=== PATIENT | male | born 1990 | race Caucasian/White ===

== ENCOUNTER 2018-05-27 20:45 | Inpatient (IN) | payer SELFPAY, OTHER ==
[2018-05-27 20:59] VITALS: BP 144/78; PULSE 78; RESP 17; TEMP 36.9; O2SAT 93; BMI 55.0
--- NOTE | 2018-05-27 21:03 | NURSING ---
Pt arrived on floor and reclining in bed. Family at bedside. VS WNL. Call light within reach.
[2018-05-27 22:00] VITALS: BP 140/78; PULSE 105; PULSE 76; RESP 17; TEMP 36.8; O2SAT 93; BMI 54.9
[2018-05-28] MEDS: LORazepam 0.5 MG Tablet PO (00:21)
[2018-05-28] MEDS: oxyCODONE 5 MG Tablet PO ×5 (00:22→21:47)
[2018-05-28] MEDS: Acetaminophen 500 MG Tablet 1000 MG PO ×2 (04:15→20:19)
[2018-05-28 05:15] LABS: Hematocrit 32.9 % (40-54); Hemoglobin 11.3 g/dl (13.0-16.5); Mean Corp Hgb Conc 34.3 g/gl (32-36); Mean Corpuscular Volume 87.3 fL (80-94); Mean Platelet Vol. 8.4 fl (6.2-12.0); Platelet Count 584 K/mm3 (150-450); RBC Distribution Width CV 12.5 % (11.6-14.6); RBC Distribution Width SD 39.1 fl (35.1-43.9); Red Blood Count 3.77 M/mm3 (4.6-6.2); Scan Indicated on CBC? Y/N NO; White Blood Count 12.1 K/mm3 (4.4-11.0)
[2018-05-28 05:27] LABS: Anion Gap 12 (5-15); BUN 19 mg/dL (7-18); BUN/Creat Ratio 29.2 RATIO (10-20); Calcium,Total 8.9 mg/dL (8.5-10.1); Chloride 102 mmol/L (98-107); Creatinine, Serum 0.65 mg/dL (0.70-1.30); EST Glomerular Filtration Rate 154 mL/min (>60); Est Glom Filt Rate - Afr Amer 186 mL/min (>60); Estimated Creatinine Clearance 162.23 ml/min; Glucose 105 mg/dL (74-106); Sodium Level 140 mmol/L (136-145)
[2018-05-28] MEDS: Acyclovir 800 MG Tablet PO ×5 (06:46→20:20)
[2018-05-28 07:10] VITALS: O2SAT 93
[2018-05-28] MEDS: Senna/Docusate Sodium 1 Tablet 2 TABLET PO ×2 (08:25→20:20)
[2018-05-28] MEDS: predniSONE 20 MG Tablet PO (08:25)
[2018-05-28] MEDS: Enoxaparin 40 MG/0.4 ML Syringe SC (08:26)
[2018-05-28 09:00] VITALS: BP 134/76; PULSE 85; RESP 18; TEMP 37; O2SAT 93
--- NOTE | 2018-05-28 13:18 | PCM.PN.HOSP ---
Subjective: Patient is a 27 year old admission who fell from a ladder at work he subsequently had multiple injuries including compression fracture involving L1 and fractures involving the right L1 and L2 transverse process, T11 compression fracture and avulsion fracture involving the endplates of T12. He also did develop left subdural hematoma with multiple rhonchi and mild contusion and hematomas involving the left frontal lobe and subarachnoid hemorrhage over the left frontal lobe and into the left interhemispheric fissure. Also did suffer a skull fracture involving the right skull base extending through the right petrous ridge in the right occipital bone with fluid in the right mastoid air cells and fracture extension through the course of the right internal carotid artery. Patient was managed at [facility] and transferred to the inpatient rehab unit for subsequent care. Objective: GENERAL: cooperative HEENT: neck in a brace NECK; supple, normal thyroid, no distended JVD. CHEST: Diminished to auscultation bilaterally, HEART: Regular S1 S2, no audible murmurs ABDOMEN: soft, non-tender, normoactive bowel sounds, RECTAL: deferred EXTREMITIES: No edema, no clubbing, no cyanosis. [employer]: Right cranial nerve VII palsy SKIN: No Rash Vitals/I&O's: Vital Signs Temp Pulse Resp BP Pulse Ox 98.6 F 85 18 134/76 H 93 05/28/18 09:00 05/28/18 09:00 05/28/18 09:00 05/28/18 09:00 05/28/18 09:00 Oxygen Delivery Method Room Air Weight: 71.6 kg Body Mass Index (BMI) 54.9 Intake and Output for Last 24 Hours 05/26/18 05/27/18 05/28/18 23:59 23:59 23:59 Intake Total 620 / 620 Balance 620 / 620 Laboratory Results 05/28/18 05:00: WBC 12.1 H, RBC 3.77 L, Hgb 11.3 L, Hct 32.9 L, MCV 87.3, MCH 30.0, MCHC 34.3, RDW 12.5, RDW Differential 39.1, Plt Count 584 H, MPV 8.4 05/28/18 05:00: Sodium 140, Potassium 4.0, Chloride 102, Carbon Dioxide 26.0, Anion Gap 12, BUN 19 H, Creatinine 0.65 L, Estim Creat Clear Calc 162.23, Est GFR (MDRD) Af Amer 186, Est GFR (MDRD) Non-Af 154, BUN/Creatinine Ratio 29.2 H, Glucose 105, Calcium 8.9 Current Medications Acetaminophen (Tylenol) 1,000 mg PO Q8H PRN PRN PRN Reason: PAIN Last Admin: 05/28/18 04:15 Dose: 1,000 mg Acyclovir (Zovirax) 800 mg PO 5X/DAY [facility] Stop: 06/02/18 22:01 Last Admin: 05/28/18 08:25 Dose: 800 mg Artificial Tears (Tears Naturale, Artificial Tears) 1 drop RIGHT EYE Q1H PRN PRN PRN Reason: Dry Eye Last Admin: 05/28/18 06:43 Dose: 1 drop Bisacodyl (Dulcolax) 10 mg RECTAL .PRN X 1 PRN PRN Reason: Constipation Enoxaparin Sodium (Lovenox) 40 mg SC DAILY [facility] Last Admin: 05/28/18 08:26 Dose: 40 mg Fentanyl (Duragesic Patch) 12 mcg TRANSDERM. Q3D [facility] Last Admin: 05/28/18 10:14 Dose: 12 mcg Lorazepam (Ativan) 0.5 mg PO QHS PRN PRN PRN Reason: Insomnia Last Admin: 05/28/18 00:21 Dose: 0.5 mg Magnesium Hydroxide (Milk Of Magnesia) 30 ml PO .PRN X 1 PRN PRN Reason: Constipation Ondansetron HCl (Zofran Odt) 4 mg PO Q6H PRN PRN PRN Reason: NAUSEA Oxycodone HCl (Oxyir) 5 mg PO Q4H PRN PRN PRN Reason: SEVERE PAIN (6-10/10) Stop: 06/03/18 22:00 Last Admin: 05/28/18 10:47 Dose: 5 mg Phenazopyridine HCl (Azo Standard) 190 mg PO TID PRN PRN PRN Reason: urinary infection Prednisone () 5 mg PO DAILY@0800 [facility] Stop: 06/14/18 08:01 Prednisone () 60 mg PO DAILYCM [facility] PRN Reason: Taper Stop: 06/12/18 07:59 Last Admin: 05/28/18 08:25 Dose: 60 mg Senna/Docusate Sodium (Senokot-S, Yoana-Colace) 2 tablet PO BID [facility] Last Admin: 05/28/18 08:25 Dose: 2 tablet Medical Necessity - Tobacco Use Smoking Status: Never smoker Assessment/Plan Patient is a 27 year old admission who fell from a ladder at work he subsequently had multiple injuries including compression fracture involving L1 and fractures involving the right L1 and L2 transverse process, T11 compression fracture and avulsion fracture involving the endplates of T12. He also did develop left subdural hematoma with multiple rhonchi and mild contusion and hematomas involving the left frontal lobe and subarachnoid hemorrhage over the left frontal lobe and into the left interhemispheric fissure. Also did suffer a skull fracture involving the right skull base extending through the right petrous ridge in the right occipital bone with fluid in the right mastoid air cells and fracture extension through the course of the right internal carotid artery. Patient was managed at [facility] and transferred to the inpatient rehab unit for subsequent care. 1. Trauma with multiple injuries including compression fracture involving L1 and fractures involving the right L1 and L2 transverse process, T11 compression fracture and avulsion fracture involving the endplates of T12. He also did develop left subdural hematoma with multiple rhonchi and mild contusion and hematomas involving the left frontal lobe and subarachnoid hemorrhage over the left frontal lobe and into the left interhemispheric fissure. Also did suffer a skull fracture involving the right skull base extending through the right petrous ridge in the right occipital bone with fluid in the right mastoid air cells and fracture extension through the course of the right internal carotid artery 2. Significant physical debility secondary to above: Patient has been admitted to the inpatient rehab unit currently undergoing rehab 3. Ohara's palsy involving the right side: Patient is on prednisone as well as acyclovir 4. Bladder spasms patient is on Pyridium as needed 5. DVT prophylaxis patient is on enoxaparin Active Medications Acetaminophen (Tylenol) 1,000 mg PO Q8H PRN PRN PRN Reason: PAIN Last Admin: 05/28/18 04:15 Dose: 1,000 mg Acyclovir (Zovirax) 800 mg PO 5X/DAY [facility] Stop: 06/02/18 22:01 Last Admin: 05/28/18 08:25 Dose: 800 mg Artificial Tears (Tears Naturale, Artificial Tears) 1 drop RIGHT EYE Q1H PRN PRN PRN Reason: Dry Eye Last Admin: 05/28/18 06:43 Dose: 1 drop Bisacodyl (Dulcolax) 10 mg RECTAL .PRN X 1 PRN PRN Reason: Constipation Enoxaparin Sodium (Lovenox) 40 mg SC DAILY [facility] Last Admin: 05/28/18 08:26 Dose: 40 mg Fentanyl (Duragesic Patch) 12 mcg TRANSDERM. Q3D [facility] Last Admin: 05/28/18 10:14 Dose: 12 mcg Lorazepam (Ativan) 0.5 mg PO QHS PRN PRN PRN Reason: Insomnia Last Admin: 05/28/18 00:21 Dose: 0.5 mg Magnesium Hydroxide (Milk Of Magnesia) 30 ml PO .PRN X 1 PRN PRN Reason: Constipation Ondansetron HCl (Zofran Odt) 4 mg PO Q6H PRN PRN PRN Reason: NAUSEA Oxycodone HCl (Oxyir) 5 mg PO Q4H PRN PRN PRN Reason: SEVERE PAIN (6-10/10) Stop: 06/03/18 22:00 Last Admin: 05/28/18 10:47 Dose: 5 mg Phenazopyridine HCl (Azo Standard) 190 mg PO TID PRN PRN PRN Reason: urinary infection Prednisone () 5 mg PO DAILY@0800 [facility] Stop: 06/14/18 08:01 Prednisone () 60 mg PO DAILYCM [facility] PRN Reason: Taper Stop: 06/12/18 07:59 Last Admin: 05/28/18 08:25 Dose: 60 mg Senna/Docusate Sodium (Senokot-S, Yoana-Colace) 2 tablet PO BID [facility] Last Admin: 05/28/18 08:25 Dose: 2 tablet Code Visit Inpatient E&M: [id number] [facility] L3
--- NOTE | 2018-05-28 16:00 | PCM.HP.COS ---
History of Present Illness Date of Admission: 05/27/18 Chief Complaint: Subdural Hematoma and Subarachnoid Hematoma The Patient is a 27 year old right handed male who was admitted to the rehab unit for rehabilitation after falling from a ladder 20 feet while at work. He suffered multiple injuries, compression fracture of L1 and transverse process fractures of the right L1 and L2, a T11 compression fracture and avulsion fracture involving the endplates of T12. A left subdural hematoma with multiple rhonchi and mild contusion and hematomas involving the left frontal lobe and a subarachnoid hemorrhage over the left frontal lobe and into the left interhemispheric fissure. He also had a skull fracture involving the right skull base extending through the right petrous ridge in the right occipital bone with fluid in the right mastoid air cells and a fracture extension through the course of the right internal carotid artery. He has no pass medical history. During his hospital stay at [facility], He had a right bur hole placement of an IPC pressure recording device to monitor his ICP on 05/15, a chest tube was placed on 05/17 for pneumothorax and was removed on 05/24. He has a TLSO brace for ambulation, and is Weight bearing as tolerated. He was placed on a pureed diet with [place] thicken liquids 2/2 Ohara's palsy. 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 He has a cervical collar in place and it should be worn at all times until cleared by the Neurosurgeon, he has follow up appointment on June 12, with DR. Murdock. He lives with his and two small children in a 2 story home with 12 steps to get into the home. He was previously completely functionally independent and is admitted to the rehab unit in order to restore him to his previous level of functional independence. Past Medical History Allergies No Known Allergies Allergy (Verified 05/27/18 21:25) Surgical History: no surgical history Psychiatric History: No pertinent psych hx Lives: Spouse/ Significant Other Smoking Status: Never smoker Alcohol: None Drugs: None Review of Systems Constitutional: Denies: Chills, Fever, Weight Change HEENT: Denies: Head Aches, Sinus Congestion, Sinus Drainage Cardiovascular: Denies: Chest Pain, Palpitations Respiratory: Denies: Cough, Shortness of breath at rest, Sputum production Gastrointestinal: Denies: Abdominal Pain, Nausea, Vomiting Genitourinary: Denies: Dysuria Musculoskeletal: Denies: Joint Pain, Joint Tenderness Skin: Denies: Rash, Wounds Neurological: Denies: Numbness, Tingling, Focal weakness Psychiatric: Denies: Anxiety, Depression, Homicidal Ideations, Suicidal Ideations Hematologic/ Lymphatic: Denies: Easy Bruising, Easy Bleeding VTE Information - Inpt Only VTE Present on Admission: No VTE Mechan Device Prophylaxis: SCD's, Knee High MATT Hose VTE Pharm Prophylaxis ordered?: Yes - Physical Exam General: Alert, Oriented x3, Cooperative HEENT: Atraumatic, PERRLA, EOMI, Normocephalic Neck: Supple, No JVD, Negative Carotid Bruits Lungs: Clear to auscultation, Normal air movement Cardiovascular: Regular rate, No murmurs Abdomen: Bowel Sounds Present, Soft, Non Tender Extremities: No edema, Capillary Refill Less than 3 Seconds Skin: No rashes, No breakdown Musculoskeletal: No Tenderness to Palpation of Joints or Extremities Neurological: Cranial nerves II-XII grossly intact Psych/Mental Status: Normal Affect, Appropriate, Alert and oriented to time, place, person, mood and affect Vital Signs Temp Pulse Resp BP Pulse Ox 98.6 F 85 18 134/76 H 93 05/28/18 09:00 05/28/18 09:00 05/28/18 09:00 05/28/18 09:00 05/28/18 09:00 Oxygen Delivery Method Room Air Weight: 71.6 kg Body Mass Index (BMI) 54.9 Intake and Output for Last 24 Hours 05/26/18 05/27/18 05/28/18 23:59 23:59 23:59 Intake Total 620 / 620 Balance 620 / 620 Laboratory Tests Past 24 Hrs 05/28/18 05/28/18 05:00 05:00 WBC 12.1 H RBC 3.77 L Hgb 11.3 L Hct 32.9 L MCV 87.3 MCH 30.0 MCHC 34.3 RDW 12.5 RDW Differential 39.1 Plt Count 584 H MPV 8.4 Sodium 140 Potassium 4.0 Chloride 102 Carbon Dioxide 26.0 Anion Gap 12 BUN 19 H Creatinine 0.65 L Estim Creat Clear Calc 162.23 Est GFR (MDRD) Af Amer 186 Est GFR (MDRD) Non-Af 154 BUN/Creatinine Ratio 29.2 H Glucose 105 Calcium 8.9 Active Medications Acetaminophen (Tylenol) 1,000 mg PO Q8H PRN PRN PRN Reason: PAIN Last Admin: 05/28/18 04:15 Dose: 1,000 mg Acyclovir (Zovirax) 800 mg PO 5X/DAY [facility] Stop: 06/02/18 22:01 Last Admin: 05/28/18 14:56 Dose: 800 mg Artificial Tears (Tears Naturale, Artificial Tears) 1 drop RIGHT EYE Q1H PRN PRN PRN Reason: Dry Eye Last Admin: 05/28/18 15:03 Dose: 1 drop Bisacodyl (Dulcolax) 10 mg RECTAL .PRN X 1 PRN PRN Reason: Constipation Enoxaparin Sodium (Lovenox) 40 mg SC DAILY@0600 [facility] Fentanyl (Duragesic Patch) 12 mcg TRANSDERM. Q3D [facility] Last Admin: 05/28/18 10:14 Dose: 12 mcg Lorazepam (Ativan) 0.5 mg PO QHS PRN PRN PRN Reason: Insomnia Last Admin: 05/28/18 00:21 Dose: 0.5 mg Magnesium Hydroxide (Milk Of Magnesia) 30 ml PO .PRN X 1 PRN PRN Reason: Constipation Ondansetron HCl (Zofran Odt) 4 mg PO Q6H PRN PRN PRN Reason: NAUSEA Oxycodone HCl (Oxyir) 5 mg PO Q4H PRN PRN PRN Reason: SEVERE PAIN (6-10/10) Stop: 06/03/18 22:00 Last Admin: 05/28/18 10:47 Dose: 5 mg Phenazopyridine HCl (Azo Standard) 190 mg PO TID PRN PRN PRN Reason: urinary infection Prednisone () 5 mg PO DAILY@0800 [facility] Stop: 06/14/18 08:01 Prednisone () 60 mg PO DAILYCM [facility] PRN Reason: Taper Stop: 06/12/18 07:59 Last Admin: 05/28/18 08:25 Dose: 60 mg Senna/Docusate Sodium (Senokot-S, Yoana-Colace) 2 tablet PO BID [facility] Last Admin: 05/28/18 08:25 Dose: 2 tablet Assessment/Plan Debility s/p Fall from a ladder 20 feet, suffered a compression fracture involving L1 and fractures involving the right L1 and L2 transverse process, T11 compression fracture and avulsion fracture involving the endplates of T12. A left subdural hematoma with multiple rhonchi and mild contusion and hematomas involving the left frontal lobe and a subarachnoid hemorrhage over the left frontal lobe and into the left interhemispheric fissure. He also suffer a skull fracture involving the right skull base extending through the right petrous ridge in the right occipital bone with fluid in the right mastoid air cells and fracture extension through the course of the right internal carotid artery. 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 A left subdural hematoma with multiple rhonchi and mild contusion and hematomas involving the left frontal lobe and a subarachnoid hemorrhage over the left frontal lobe and into the left interhemispheric fissure.
--- NOTE | 2018-05-28 16:03 | HP.PCM.COS_ITS ---
History of Present Illness Date of Admission: 05/27/18 Chief Complaint: Subdural Hematoma and Subarachnoid Hematoma The Patient is a 27 year old right handed male who was admitted to the rehab unit for rehabilitation after falling from a ladder 20 feet while at work. He suffered multiple injuries, compression fracture of L1 and transverse process fractures of the right L1 and L2, a T11 compression fracture and avulsion fracture involving the endplates of T12. A left subdural hematoma with multiple rhonchi and mild contusion and hematomas involving the left frontal lobe and a subarachnoid hemorrhage over the left frontal lobe and into the left interhemispheric fissure. He also had a skull fracture involving the right skull base extending through the right petrous ridge in the right occipital bone with fluid in the right mastoid air cells and a fracture extension through the course of the right internal carotid artery. He has no pass medical history. During his hospital stay at [facility], He had a right bur hole placement of an IPC pressure recording device to monitor his ICP on 05/15, a chest tube was placed on 05/17 for pneumothorax and was removed on 05/24. He has a TLSO brace for ambulation, and is Weight bearing as tolerated. He was placed on a pureed diet with [place] thicken liquids 2/2 Ohara's palsy. 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 He has a cervical collar in place and it should be worn at all times until cleared by the Neurosurgeon, he has follow up appointment on June 12, with DR. Murdock. He lives with his and two small children in a 2 story home with 12 steps to get into the home. He was previously completely functionally independent and is admitted to the rehab unit in order to restore him to his previous level of functional independence. Past Medical History Allergies No Known Allergies Allergy (Verified 05/27/18 21:25) Surgical History: no surgical history Psychiatric History: No pertinent psych hx Lives: Spouse/ Significant Other Smoking Status: Never smoker Alcohol: None Drugs: None Review of Systems Constitutional: Denies: Chills, Fever, Weight Change HEENT: Denies: Head Aches, Sinus Congestion, Sinus Drainage Cardiovascular: Denies: Chest Pain, Palpitations Respiratory: Denies: Cough, Shortness of breath at rest, Sputum production Gastrointestinal: Denies: Abdominal Pain, Nausea, Vomiting Genitourinary: Denies: Dysuria Musculoskeletal: Denies: Joint Pain, Joint Tenderness Skin: Denies: Rash, Wounds Neurological: Denies: Numbness, Tingling, Focal weakness Psychiatric: Denies: Anxiety, Depression, Homicidal Ideations, Suicidal Ideations Hematologic/ Lymphatic: Denies: Easy Bruising, Easy Bleeding VTE Information - Inpt Only VTE Present on Admission: No VTE Mechan Device Prophylaxis: SCD's, Knee High MATT Hose VTE Pharm Prophylaxis ordered?: Yes - Physical Exam General: Alert, Oriented x3, Cooperative HEENT: Atraumatic, PERRLA, EOMI, Normocephalic Neck: Supple, No JVD, Negative Carotid Bruits Lungs: Clear to auscultation, Normal air movement Cardiovascular: Regular rate, No murmurs Abdomen: Bowel Sounds Present, Soft, Non Tender Extremities: No edema, Capillary Refill Less than 3 Seconds Skin: No rashes, No breakdown Musculoskeletal: No Tenderness to Palpation of Joints or Extremities Neurological: Cranial nerves II-XII grossly intact Psych/Mental Status: Normal Affect, Appropriate, Alert and oriented to time, place, person, mood and affect Vital Signs Temp Pulse Resp BP Pulse Ox 98.6 F 85 18 134/76 H 93 05/28/18 09:00 05/28/18 09:00 05/28/18 09:00 05/28/18 09:00 05/28/18 09:00 Oxygen Delivery Method Room Air Weight: 71.6 kg Body Mass Index (BMI) 54.9 Intake and Output for Last 24 Hours 05/26/18 05/27/18 05/28/18 23:59 23:59 23:59 Intake Total 620 / 620 Balance 620 / 620 Laboratory Tests Past 24 Hrs 05/28/18 05/28/18 05:00 05:00 WBC 12.1 H RBC 3.77 L Hgb 11.3 L Hct 32.9 L MCV 87.3 MCH 30.0 MCHC 34.3 RDW 12.5 RDW Differential 39.1 Plt Count 584 H MPV 8.4 Sodium 140 Potassium 4.0 Chloride 102 Carbon Dioxide 26.0 Anion Gap 12 BUN 19 H Creatinine 0.65 L Estim Creat Clear Calc 162.23 Est GFR (MDRD) Af Amer 186 Est GFR (MDRD) Non-Af 154 BUN/Creatinine Ratio 29.2 H Glucose 105 Calcium 8.9 Active Medications Acetaminophen (Tylenol) 1,000 mg PO Q8H PRN PRN PRN Reason: PAIN Last Admin: 05/28/18 04:15 Dose: 1,000 mg Acyclovir (Zovirax) 800 mg PO 5X/DAY [facility] Stop: 06/02/18 22:01 Last Admin: 05/28/18 14:56 Dose: 800 mg Artificial Tears (Tears Naturale, Artificial Tears) 1 drop RIGHT EYE Q1H PRN PRN PRN Reason: Dry Eye Last Admin: 05/28/18 15:03 Dose: 1 drop Bisacodyl (Dulcolax) 10 mg RECTAL .PRN X 1 PRN PRN Reason: Constipation Enoxaparin Sodium (Lovenox) 40 mg SC DAILY@0600 [facility] Fentanyl (Duragesic Patch) 12 mcg TRANSDERM. Q3D [facility] Last Admin: 05/28/18 10:14 Dose: 12 mcg Lorazepam (Ativan) 0.5 mg PO QHS PRN PRN PRN Reason: Insomnia Last Admin: 05/28/18 00:21 Dose: 0.5 mg Magnesium Hydroxide (Milk Of Magnesia) 30 ml PO .PRN X 1 PRN PRN Reason: Constipation Ondansetron HCl (Zofran Odt) 4 mg PO Q6H PRN PRN PRN Reason: NAUSEA Oxycodone HCl (Oxyir) 5 mg PO Q4H PRN PRN PRN Reason: SEVERE PAIN (6-10/10) Stop: 06/03/18 22:00 Last Admin: 05/28/18 10:47 Dose: 5 mg Phenazopyridine HCl (Azo Standard) 190 mg PO TID PRN PRN PRN Reason: urinary infection Prednisone () 5 mg PO DAILY@0800 [facility] Stop: 06/14/18 08:01 Prednisone () 60 mg PO DAILYCM [facility] PRN Reason: Taper Stop: 06/12/18 07:59 Last Admin: 05/28/18 08:25 Dose: 60 mg Senna/Docusate Sodium (Senokot-S, Yoana-Colace) 2 tablet PO BID [facility] Last Admin: 05/28/18 08:25 Dose: 2 tablet Assessment/Plan Debility s/p Fall from a ladder 20 feet, suffered a compression fracture involving L1 and fractures involving the right L1 and L2 transverse process, T11 compression fracture and avulsion fracture involving the endplates of T12. A left subdural hematoma with multiple rhonchi and mild contusion and hematomas involving the left frontal lobe and a subarachnoid hemorrhage over the left frontal lobe and into the left interhemispheric fissure. He also suffer a skull fracture involving the right skull base extending through the right petrous ridge in the right occipital bone with fluid in the right mastoid air cells and fracture extension through the course of the right internal carotid artery. 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 A left subdural hematoma with multiple rhonchi and mild contusion and hematomas involving the left frontal lobe and a subarachnoid hemorrhage over the left frontal lobe and into the left interhemispheric fissure.
--- NOTE | 2018-05-28 16:16 | PCM.RU.PYE ---
Admission Information Status Changes from Prescreening?: No changes Identified Actual Problem List:: Falls, Mobility Impaired, Self Care Deficit Potential Problem List:: DVT, Bleeding, Infection, UTI, Aspiration, Falls, Skin Integrity, Depression Risk of Complications DVT: LMWH, MATT Hose, Sequential Compression Device Bleeding: Monitor Lab Values, Nursing to Teach Precautions for anti-coagulation therapy., Wound, if applicable, to be assessed every shift., Stroke patients assessed for lethargy or change in status. Infection: Clinical Staff to Monitor for S/S of infection:, S/S of infection include fever, redness, warmth, etc. Urinary Tract Infection: Monitor for frequency, burning, discomfort, or incontinence., Nursing will obtain urine sample for urinalysis and C&S when ordered. Aspiration: Clinical staff will monitor for coughing, drooling, congestion., Speech will evaluate swallowing and dsyphasia., Nursing will monitor patient swallowing during meals. Falls: Patient will be evaluated for Fall Precautions, Patient will be placed on Fall Precautions as indicated per protocol. Skin Breakdown: Nursing will assess skin daily using assessment tool., Nursing will place on Skin Breakdown Precautions as indicated. Pain: Clinical staff will assess patient's pain level per protocol., Medications will be given, if needed, and the pain level reassessed., Other methods: Massage, distraction, decrease stimulus, etc. used PRN. Plan of Care Patient requires physician specializing in physical medicine and rehab oversight to provide close medical supervision of rehab issues including: Pain Management, Sleep Problems, Bowel and Bladder, Medical and co-morbidity Management, DVT prophylaxis, Rehabilitation Leadership, Coordination of treatment team Patient needs Physical Therapy: For a minimum of 1 hour, At least 5 out of 7 days Patient needs Physical Therapy to improve:: Mobility, Mobility, Mobility, Strengthening, Transfers, Stretching, ROM, Endurance, Stairs, Gait, Balance Patient needs Occupational Therapy: For a minimum of 1 hour, At least 5 out of 7 days Patient needs Occupational Therapy to improve ADL's incl.: Eating, Grooming, Bathing, Dressing, Toileting, Toilet transfers, Community Reintegration, Higher functioning activities, Household tasks, Adaptive Equipment, Splinting, Other activities as determined Patient requires speech therapy: For a minimum of 1 hour, At least 5 out of 7 days Patient requires speech therapy for: Swallowing, Cognition, Language Skills, Compensatory Strategies Patient requires / Rehabilitation Nursing for: Pain Issues, Identifying and preventing risk factors, Monitoring and reporting current medical conditions, Assisting with ambulation, transfer, and all ADL's, Teaching patients about disease process and medications, Family teaching, Providing safe environment, Bowel and Bladder Issues, Skin integrity, Medication Management Patient needs Reference Librarian/ Case Management for: Discharge Planning, Arranging Home Equipment or Services, Family Interventions Patient needs Dietary and Nutrition Services for: Adequate Nutrition, Nutritional Supplements, Nutritional Education Goals Patient will remain: free from falls, or injury at time of discharge. Patient will perform bed mobility at: MOD I level of assist. Patient will complete transfers from bed to chair at: MOD I level of assist. Patient will ambulate: 100 feet, with MOD I assist, with LRD Patient will complete upper body dressing at: MOD I level of assist. Patient will complete lower body dressing at: MOD I level of assist. Patient will complete toileting at: MOD I level of assist. Patient will perform bathing at: MOD I level of assist. Patient will complete grooming at: MOD I level of assist. Patient will complete home management skills at: MOD I level of assist. Patient will achieve: 12 stairs, at MOD I assist Patient will have pain level of: of 3 or less Patient's skin will: remain intact, free from infection. Patient will receive: adequate nutrition. Discharge Planning Pt Prognosis for Sig. Practical Improv. w/in Reasonable Time: Fair Estimated Length of stay (days): 14 Anticipated D/C Destination: Home Was Preadmission Assessment Accurate?: Yes
--- NOTE | 2018-05-28 16:32 | CHAPLAIN ---
Type of Pastoral Visit _x__ Initial Visit ___ Follow-up Visit ___ On-call Visit ___ General Patient Visit ___ Spiritual Assessment ___ Family Conference ___ Bereavement ___ Rapid Response ___ Code Blue ___ Other (describe below) Pastoral Care Referral From _x__ Patient ___ Family _x__ Nurse ___ Physician ___ Junior Engineer ___ Montessori Lead Teacher ___ Other (describe below) Sacrament/Intervention _x__ Active listening ___ Anointing ___ Jew ___ Bereavement ___ Communion _x__ Irma exploration ___ _x__ Life review _x__ Prayer ___ Reconciliation ___ Sacrament of Sick _x__ Supportive presence ___ Wedding ___ Other (describe below) Pastoral Comments patient is of the Religious rima; pt father is a Tracy in Religious mu-ism; pt has young family; pt expresses gratitude that God spared his life but also processing what his future will be since injury; pt wonders out loud about why this happened to him; pt is talkative; sometimes pt made comments that did not fit the conversation but otherwise appropriate; pt asked for this purifying plant operator to visit him again
[2018-05-28 20:07] VITALS: BP 143/70; PULSE 72; RESP 24; TEMP 36.9; O2SAT 92
[2018-05-28 20:29] VITALS: PULSE 81; O2SAT 90
[2018-05-29] MEDS: oxyCODONE 5 MG Tablet PO ×4 (02:00→17:30)
--- NOTE | 2018-05-29 04:30 | NURSING ---
REVIEWED AND AGREE WITH [employer]IST'S HANDOFF CHARTING.
[2018-05-29] MEDS: Enoxaparin 40 MG/0.4 ML Syringe SC (05:47)
[2018-05-29] MEDS: Acyclovir 800 MG Tablet PO ×5 (05:49→19:50)
[2018-05-29 07:15] VITALS: O2SAT 94
[2018-05-29 08:02] VITALS: BP 141/76; PULSE 86; RESP 18; TEMP 36.7; O2SAT 94
[2018-05-29] MEDS: predniSONE 20 MG Tablet PO (09:48)
[2018-05-29] MEDS: Acetaminophen 500 MG Tablet 1000 MG PO ×2 (09:53→19:50)
--- NOTE | 2018-05-29 10:24 | PCM.PN.NEU ---
Subjective: Patient seen and examined. Had a slight headache earlier, which has resolved with Tylenol. Tolerating therapy. Pain is under control. Tolerating Pureed diet, with thicken liquids. No issues with GI/. - Physical Exam General: Alert, Oriented x3, Cooperative HEENT: Atraumatic, PERRLA, EOMI, Normocephalic Neck: Supple, No JVD, Negative Carotid Bruits Lungs: Clear to auscultation, Normal air movement Cardiovascular: Regular rate, No murmurs Abdomen: Bowel Sounds Present, Soft, Non Tender Extremities: No edema, Capillary Refill Less than 3 Seconds Skin: No rashes, No breakdown Musculoskeletal: No Tenderness to Palpation of Joints or Extremities Neurological: Cranial nerves II-XII grossly intact Psych/Mental Status: Normal Affect, Appropriate, Alert and oriented to time, place, person, mood and affect Vital Signs Temp Pulse Resp BP Pulse Ox 98.1 F 86 18 141/76 H 94 05/29/18 08:02 05/29/18 08:02 05/29/18 08:02 05/29/18 08:02 05/29/18 08:02 Oxygen Delivery Method Room Air Weight: 71.6 kg Body Mass Index (BMI) 54.9 Intake and Output for Last 24 Hours 05/27/18 05/28/18 05/29/18 23:59 23:59 23:59 Intake Total 620 / 620 Balance 620 / 620 Active Medications Acetaminophen (Tylenol) 1,000 mg PO Q8H PRN PRN PRN Reason: PAIN Last Admin: 05/29/18 09:53 Dose: 1,000 mg Acyclovir (Zovirax) 800 mg PO 5X/DAY [facility] Stop: 06/02/18 22:01 Last Admin: 05/29/18 09:48 Dose: 800 mg Artificial Tears (Tears Naturale, Artificial Tears) 1 drop RIGHT EYE Q1H PRN PRN PRN Reason: Dry Eye Last Admin: 05/28/18 15:03 Dose: 1 drop Bisacodyl (Dulcolax) 10 mg RECTAL .PRN X 1 PRN PRN Reason: Constipation Enoxaparin Sodium (Lovenox) 40 mg SC DAILY@0600 [facility] Last Admin: 05/29/18 05:47 Dose: 40 mg Fentanyl (Duragesic Patch) 12 mcg TRANSDERM. Q3D [facility] Last Admin: 05/28/18 10:14 Dose: 12 mcg Lorazepam (Ativan) 0.5 mg PO QHS PRN PRN PRN Reason: Insomnia Last Admin: 05/28/18 00:21 Dose: 0.5 mg Magnesium Hydroxide (Milk Of Magnesia) 30 ml PO .PRN X 1 PRN PRN Reason: Constipation Ondansetron HCl (Zofran Odt) 4 mg PO Q6H PRN PRN PRN Reason: NAUSEA Oxycodone HCl (Oxyir) 5 mg PO Q4H PRN PRN PRN Reason: SEVERE PAIN (6-10/10) Stop: 06/03/18 22:00 Last Admin: 05/29/18 06:06 Dose: 5 mg Phenazopyridine HCl (Azo Standard) 190 mg PO TID PRN PRN PRN Reason: urinary infection Prednisone () 5 mg PO DAILY@0800 [facility] Stop: 06/14/18 08:01 Prednisone () 60 mg PO DAILYCM [facility] PRN Reason: Taper Stop: 06/12/18 07:59 Last Admin: 05/29/18 09:48 Dose: 60 mg Senna/Docusate Sodium (Senokot-S, Yoana-Colace) 2 tablet PO BID [facility] Last Admin: 05/29/18 09:48 Dose: Not Given Medical Necessity - Tobacco Use Smoking Status: Never smoker Assessment/Plan Debility s/p Fall from a ladder 20 feet, suffered a compression fracture involving L1 and fractures involving the right L1 and L2 transverse process, T11 compression fracture and avulsion fracture involving the endplates of T12. A left subdural hematoma with multiple rhonchi and mild contusion and hematomas involving the left frontal lobe and a subarachnoid hemorrhage over the left frontal lobe and into the left interhemispheric fissure. He also suffer a skull fracture involving the right skull base extending through the right petrous ridge in the right occipital bone with fluid in the right mastoid air cells and fracture extension through the course of the right internal carotid artery. 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 A left subdural hematoma with multiple rhonchi and mild contusion and hematomas involving the left frontal lobe and a subarachnoid hemorrhage over the left frontal lobe and into the left interhemispheric fissure.
--- NOTE | 2018-05-29 10:35 | PN.NEURO_ITS ---
Subjective: Patient seen and examined. Had a slight headache earlier, which has resolved with Tylenol. Tolerating therapy. Pain is under control. Tolerating Pureed diet , with thicken liquids. No issues with GI/. - Physical Exam General: Alert, Oriented x3, Cooperative HEENT: Atraumatic, PERRLA, EOMI, Normocephalic Neck: Supple, No JVD, Negative Carotid Bruits Lungs: Clear to auscultation, Normal air movement Cardiovascular: Regular rate, No murmurs Abdomen: Bowel Sounds Present, Soft, Non Tender Extremities: No edema, Capillary Refill Less than 3 Seconds Skin: No rashes, No breakdown Musculoskeletal: No Tenderness to Palpation of Joints or Extremities Neurological: Cranial nerves II-XII grossly intact Psych/Mental Status: Normal Affect, Appropriate, Alert and oriented to time, place, person, mood and affect Vital Signs Temp Pulse Resp BP Pulse Ox 98.1 F 86 18 141/76 H 94 05/29/18 08:02 05/29/18 08:02 05/29/18 08:02 05/29/18 08:02 05/29/18 08:02 Oxygen Delivery Method Room Air Weight: 71.6 kg Body Mass Index (BMI) 54.9 Intake and Output for Last 24 Hours 05/27/18 05/28/18 05/29/18 23:59 23:59 23:59 Intake Total 620 / 620 Balance 620 / 620 Active Medications Acetaminophen (Tylenol) 1,000 mg PO Q8H PRN PRN PRN Reason: PAIN Last Admin: 05/29/18 09:53 Dose: 1,000 mg Acyclovir (Zovirax) 800 mg PO 5X/DAY [facility] Stop: 06/02/18 22:01 Last Admin: 05/29/18 09:48 Dose: 800 mg Artificial Tears (Tears Naturale, Artificial Tears) 1 drop RIGHT EYE Q1H PRN PRN PRN Reason: Dry Eye Last Admin: 05/28/18 15:03 Dose: 1 drop Bisacodyl (Dulcolax) 10 mg RECTAL .PRN X 1 PRN PRN Reason: Constipation Enoxaparin Sodium (Lovenox) 40 mg SC DAILY@0600 [facility] Last Admin: 05/29/18 05:47 Dose: 40 mg Fentanyl (Duragesic Patch) 12 mcg TRANSDERM. Q3D [facility] Last Admin: 05/28/18 10:14 Dose: 12 mcg Lorazepam (Ativan) 0.5 mg PO QHS PRN PRN PRN Reason: Insomnia Last Admin: 05/28/18 00:21 Dose: 0.5 mg Magnesium Hydroxide (Milk Of Magnesia) 30 ml PO .PRN X 1 PRN PRN Reason: Constipation Ondansetron HCl (Zofran Odt) 4 mg PO Q6H PRN PRN PRN Reason: NAUSEA Oxycodone HCl (Oxyir) 5 mg PO Q4H PRN PRN PRN Reason: SEVERE PAIN (6-10/10) Stop: 06/03/18 22:00 Last Admin: 05/29/18 06:06 Dose: 5 mg Phenazopyridine HCl (Azo Standard) 190 mg PO TID PRN PRN PRN Reason: urinary infection Prednisone () 5 mg PO DAILY@0800 [facility] Stop: 06/14/18 08:01 Prednisone () 60 mg PO DAILYCM [facility] PRN Reason: Taper Stop: 06/12/18 07:59 Last Admin: 05/29/18 09:48 Dose: 60 mg Senna/Docusate Sodium (Senokot-S, Yoana-Colace) 2 tablet PO BID [facility] Last Admin: 05/29/18 09:48 Dose: Not Given Medical Necessity - Tobacco Use Smoking Status: Never smoker Assessment/Plan Debility s/p Fall from a ladder 20 feet, suffered a compression fracture involving L1 and fractures involving the right L1 and L2 transverse process, T11 compression fracture and avulsion fracture involving the endplates of T12. A left subdural hematoma with multiple rhonchi and mild contusion and hematomas involving the left frontal lobe and a subarachnoid hemorrhage over the left frontal lobe and into the left interhemispheric fissure. He also suffer a skull fracture involving the right skull base extending through the right petrous ridge in the right occipital bone with fluid in the right mastoid air cells and fracture extension through the course of the right internal carotid artery. 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 A left subdural hematoma with multiple rhonchi and mild contusion and hematomas involving the left frontal lobe and a subarachnoid hemorrhage over the left frontal lobe and into the left interhemispheric fissure.
[2018-05-29 19:46] VITALS: BP 147/75; PULSE 88; RESP 17; TEMP 36.8; O2SAT 93
[2018-05-29] MEDS: Senna/Docusate Sodium 1 Tablet 2 TABLET PO (19:50)
[2018-05-29] MEDS: LORazepam 0.5 MG Tablet PO (20:05)
[2018-05-30] MEDS: oxyCODONE 5 MG Tablet PO ×5 (00:58→21:36)
[2018-05-30] MEDS: LORazepam 0.5 MG Tablet PO ×2 (01:03→21:36)
[2018-05-30] MEDS: Acyclovir 800 MG Tablet PO ×5 (06:26→20:23)
[2018-05-30] MEDS: Acetaminophen 500 MG Tablet 1000 MG PO ×2 (06:26→16:57)
[2018-05-30] MEDS: Enoxaparin 40 MG/0.4 ML Syringe SC (06:27)
[2018-05-30 08:56] VITALS: BP 136/89; PULSE 82; RESP 16; TEMP 36.9; O2SAT 92
[2018-05-30] MEDS: Senna/Docusate Sodium 1 Tablet 2 TABLET PO ×2 (08:58→20:23)
[2018-05-30] MEDS: predniSONE 20 MG Tablet PO (08:58)
[2018-05-30] MEDS: fentaNYL 25 MCG Patch TRANSDERM. (11:40)
--- NOTE | 2018-05-30 11:56 | NURSING ---
This RN put fentanyl 25mcg patch on L. deltoid went to remove old patch and could not find on pt. Pt states that pain patch fell off this morning this RN searched pt, trash can in bathroom and room, could not find patch.
--- NOTE | 2018-05-30 12:53 | PCM.PN.NEU ---
Subjective: Patient seen during Physical therapy session. He is doing very well, tolerating therapy. Pain is marginally controlled, will increase his Fentanyl patch to 25mcq. - Physical Exam General: Alert, Oriented x3, Cooperative HEENT: Atraumatic, PERRLA, EOMI, Normocephalic Neck: Supple, No JVD, Negative Carotid Bruits Lungs: Clear to auscultation, Normal air movement Cardiovascular: Regular rate, No murmurs Abdomen: Bowel Sounds Present, Soft, Non Tender Extremities: No edema, Capillary Refill Less than 3 Seconds Skin: No rashes, No breakdown Musculoskeletal: No Tenderness to Palpation of Joints or Extremities Neurological: Cranial nerves II-XII grossly intact Psych/Mental Status: Normal Affect, Appropriate, Alert and oriented to time, place, person, mood and affect Vital Signs Temp Pulse Resp BP Pulse Ox 98.4 F 82 16 136/89 H 92 05/30/18 08:56 05/30/18 08:56 05/30/18 08:56 05/30/18 08:56 05/30/18 08:56 Oxygen Delivery Method Room Air Weight: 71.6 kg Body Mass Index (BMI) 54.9 Intake and Output for Last 24 Hours 05/28/18 05/29/18 05/30/18 23:59 23:59 23:59 Intake Total 620 / 620 480 / 480 120 / 120 Balance 620 / 620 480 / 480 120 / 120 Active Medications Acetaminophen (Tylenol) 1,000 mg PO Q8H PRN PRN PRN Reason: PAIN Last Admin: 05/30/18 06:26 Dose: 1,000 mg Acyclovir (Zovirax) 800 mg PO 5X/DAY [facility] Stop: 06/02/18 22:01 Last Admin: 05/30/18 08:58 Dose: 800 mg Artificial Tears (Tears Naturale, Artificial Tears) 1 drop RIGHT EYE Q1H PRN PRN PRN Reason: Dry Eye Last Admin: 05/30/18 01:12 Dose: 1 drop Bisacodyl (Dulcolax) 10 mg RECTAL .PRN X 1 PRN PRN Reason: Constipation Enoxaparin Sodium (Lovenox) 40 mg SC DAILY@0600 [facility] Last Admin: 05/30/18 06:27 Dose: 40 mg Fentanyl (Duragesic Patch) 25 mcg TRANSDERM. Q3D [facility] Last Admin: 05/30/18 11:40 Dose: 25 mcg Lorazepam (Ativan) 0.5 mg PO QHS PRN PRN PRN Reason: Insomnia Last Admin: 05/30/18 01:03 Dose: 0.5 mg Magnesium Hydroxide (Milk Of Magnesia) 30 ml PO .PRN X 1 PRN PRN Reason: Constipation Ondansetron HCl (Zofran Odt) 4 mg PO Q6H PRN PRN PRN Reason: NAUSEA Oxycodone HCl (Oxyir) 5 mg PO Q4H PRN PRN PRN Reason: SEVERE PAIN (6-10/10) Stop: 06/03/18 22:00 Last Admin: 05/30/18 11:41 Dose: 5 mg Phenazopyridine HCl (Azo Standard) 190 mg PO TID PRN PRN PRN Reason: urinary infection Prednisone () 5 mg PO DAILY@0800 [facility] Stop: 06/14/18 08:01 Prednisone () 60 mg PO DAILYCM [facility] PRN Reason: Taper Stop: 06/12/18 07:59 Last Admin: 05/30/18 08:58 Dose: 60 mg Senna/Docusate Sodium (Senokot-S, Yoana-Colace) 2 tablet PO BID [facility] Last Admin: 05/30/18 08:58 Dose: 2 tablet Medical Necessity - Tobacco Use Smoking Status: Never smoker Assessment/Plan Debility s/p Fall from a ladder 20 feet, suffered a compression fracture involving L1 and fractures involving the right L1 and L2 transverse process, T11 compression fracture and avulsion fracture involving the endplates of T12. A left subdural hematoma with multiple rhonchi and mild contusion and hematomas involving the left frontal lobe and a subarachnoid hemorrhage over the left frontal lobe and into the left interhemispheric fissure. He also suffer a skull fracture involving the right skull base extending through the right petrous ridge in the right occipital bone with fluid in the right mastoid air cells and fracture extension through the course of the right internal carotid artery. 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 A left subdural hematoma with multiple rhonchi and mild contusion and hematomas involving the left frontal lobe and a subarachnoid hemorrhage over the left frontal lobe and into the left interhemispheric fissure. - Acute pain - increase Fentanyl patch to 25mcq
[2018-05-30 16:04] VITALS: O2SAT 93
--- NOTE | 2018-05-30 17:43 | NURSING ---
did mouth care with pt. pt can have free water at 1800.
[2018-05-30 20:21] VITALS: BP 143/74; PULSE 75; RESP 16; TEMP 36.8; O2SAT 93
[2018-05-31] MEDS: Acetaminophen 500 MG Tablet 1000 MG PO (03:28)
[2018-05-31] MEDS: oxyCODONE 5 MG Tablet PO ×4 (03:29→20:37)
[2018-05-31] MEDS: Enoxaparin 40 MG/0.4 ML Syringe SC (06:09)
[2018-05-31] MEDS: Acyclovir 800 MG Tablet PO ×5 (06:10→20:38)
[2018-05-31 09:32] VITALS: BP 135/64; PULSE 82; RESP 17; TEMP 36.8; O2SAT 99
[2018-05-31] MEDS: predniSONE 20 MG Tablet PO (10:25)
[2018-05-31] MEDS: Senna/Docusate Sodium 1 Tablet 2 TABLET PO ×2 (10:25→20:38)
[2018-05-31 20:51] VITALS: BP 138/72; PULSE 73; RESP 18; TEMP 36.9; O2SAT 94
[2018-06-01] MEDS: oxyCODONE 5 MG Tablet PO ×5 (02:03→22:21)
[2018-06-01] MEDS: Enoxaparin 40 MG/0.4 ML Syringe SC (05:05)
[2018-06-01] MEDS: Acyclovir 800 MG Tablet PO ×5 (05:06→22:21)
[2018-06-01 07:10] VITALS: O2SAT 96
[2018-06-01 07:18] VITALS: BP 143/81; PULSE 84; RESP 18; TEMP 36.3; O2SAT 96
[2018-06-01] MEDS: Senna/Docusate Sodium 1 Tablet 2 TABLET PO ×2 (07:35→22:21)
[2018-06-01] MEDS: predniSONE 20 MG Tablet PO (07:35)
--- NOTE | 2018-06-01 11:11 | NURSING ---
patient ambulated > 150 ft x min assist with walker. tolerated well.
[2018-06-01 22:00] VITALS: BP 136/74; PULSE 78; RESP 18; TEMP 36.7; O2SAT 95
[2018-06-01] MEDS: LORazepam 0.5 MG Tablet PO (22:21)
--- NOTE | 2018-06-02 03:26 | NURSING ---
REVIEWED AND AGREE WITH [employer]PARER MAKING DEPARTMENT'S FIM AND HANDOFF CHARTING.
[2018-06-02] MEDS: Acyclovir 800 MG Tablet PO ×5 (06:25→21:59)
[2018-06-02] MEDS: Enoxaparin 40 MG/0.4 ML Syringe SC (06:25)
[2018-06-02] MEDS: oxyCODONE 5 MG Tablet PO ×3 (06:32→21:57)
[2018-06-02 07:33] VITALS: BP 130/78; PULSE 77; RESP 16; TEMP 36.7; O2SAT 98
[2018-06-02] MEDS: Senna/Docusate Sodium 1 Tablet 2 TABLET PO ×2 (07:40→21:59)
[2018-06-02] MEDS: fentaNYL 25 MCG Patch TRANSDERM. (07:41)
[2018-06-02] MEDS: predniSONE 20 MG Tablet PO (07:41)
[2018-06-02 18:47] VITALS: BP 142/74; PULSE 90; RESP 18; TEMP 37.1; O2SAT 95
[2018-06-02] MEDS: LORazepam 0.5 MG Tablet PO (21:57)
[2018-06-03] MEDS: oxyCODONE 5 MG Tablet PO ×2 (06:17→21:18)
[2018-06-03] MEDS: Enoxaparin 40 MG/0.4 ML Syringe SC (06:17)
[2018-06-03 08:26] VITALS: BP 134/72; PULSE 75; RESP 18; TEMP 36.8; O2SAT 95
[2018-06-03] MEDS: predniSONE 20 MG Tablet PO (08:35)
--- NOTE | 2018-06-03 12:46 | PN.NEURO_ITS ---
Subjective: Staffed in team meeting. Family at bedside, questions answered. With Physical therapy, he is a able to turn and slide to the edge of the bed at supervision level, he is able to for from a sitting position to a standing position with a walker at stand by assist. He is able to walk 350 feet with a walker at standby assist, he has gone up and down a flight of steps at stand by assist. With Occupational therapy, he is minimal assist for lower body bathing, and getting his pants on, he is able to pull them up himself once they are at his knee. He is minimal assist for getting his TLSO brace on. He is supervision for bathing and dressing his upper body. With Nursing, his pain is well control on his current medications. The plan is for discharge home with his on 06/04, the staff feels he will do fine and he has a strong support network available to him. Currently he is deciding on weather he would like home health Physical therapy, and Occupational therapy. - Physical Exam General: Alert, Oriented x3, Cooperative HEENT: Atraumatic, PERRLA, EOMI, Normocephalic Neck: Supple, No JVD, Negative Carotid Bruits Lungs: Clear to auscultation, Normal air movement Cardiovascular: Regular rate, No murmurs Abdomen: Bowel Sounds Present, Soft, Non Tender Extremities: No edema, Capillary Refill Less than 3 Seconds Skin: No rashes, No breakdown Musculoskeletal: No Tenderness to Palpation of Joints or Extremities Neurological: Cranial nerves II-XII grossly intact Psych/Mental Status: Normal Affect, Appropriate, Alert and oriented to time, place, person, mood and affect Vital Signs Temp Pulse Resp BP Pulse Ox 98.3 F 75 18 134/72 H 95 06/03/18 08:26 06/03/18 08:26 06/03/18 08:26 06/03/18 08:26 06/03/18 08:26 Oxygen Delivery Method Room Air Weight: 71.6 kg Body Mass Index (BMI) 54.9 Intake and Output for Last 24 Hours 06/01/18 06/02/18 06/03/18 23:59 23:59 23:59 Intake Total 480 / 480 Balance 480 / 480 Active Medications Acetaminophen (Tylenol) 1,000 mg PO Q8H PRN PRN PRN Reason: PAIN Last Admin: 05/31/18 03:28 Dose: 1,000 mg Artificial Tears (Tears Naturale, Artificial Tears) 1 drop RIGHT EYE Q1H PRN PRN PRN Reason: Dry Eye Last Admin: 06/03/18 06:16 Dose: 1 drop Bisacodyl (Dulcolax) 10 mg RECTAL .PRN X 1 PRN PRN Reason: Constipation Enoxaparin Sodium (Lovenox) 40 mg SC DAILY@0600 [facility] Last Admin: 06/03/18 06:17 Dose: 40 mg Fentanyl (Duragesic Patch) 25 mcg TRANSDERM. Q3D [facility] Last Admin: 06/02/18 07:41 Dose: 25 mcg Lorazepam (Ativan) 0.5 mg PO QHS PRN PRN PRN Reason: Insomnia Last Admin: 06/02/18 21:57 Dose: 0.5 mg Magnesium Hydroxide (Milk Of Magnesia) 30 ml PO .PRN X 1 PRN PRN Reason: Constipation Ondansetron HCl (Zofran Odt) 4 mg PO Q6H PRN PRN PRN Reason: NAUSEA Oxycodone HCl (Oxyir) 5 mg PO Q4H PRN PRN PRN Reason: SEVERE PAIN (6-10/10) Stop: 06/03/18 22:00 Last Admin: 06/03/18 06:17 Dose: 5 mg Phenazopyridine HCl (Azo Standard) 190 mg PO TID PRN PRN PRN Reason: urinary infection Prednisone () 5 mg PO DAILY@0800 [facility] Stop: 06/14/18 08:01 Prednisone () 40 mg PO DAILYCM [facility] PRN Reason: Taper Stop: 06/12/18 07:59 Last Admin: 06/03/18 08:35 Dose: 40 mg Senna/Docusate Sodium (Senokot-S, Yoana-Colace) 2 tablet PO BID [facility] Last Admin: 06/03/18 08:35 Dose: Not Given Medical Necessity - Tobacco Use Smoking Status: Never smoker Assessment/Plan Debility s/p Fall from a ladder 20 feet, suffered a compression fracture involving L1 and fractures involving the right L1 and L2 transverse process, T11 compression fracture and avulsion fracture involving the endplates of T12. A left subdural hematoma with multiple rhonchi and mild contusion and hematomas involving the left frontal lobe and a subarachnoid hemorrhage over the left frontal lobe and into the left interhemispheric fissure. He also suffer a skull fracture involving the right skull base extending through the right petrous ridge in the right occipital bone with fluid in the right mastoid air cells and fracture extension through the course of the right internal carotid artery. 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 A left subdural hematoma with multiple rhonchi and mild contusion and hematomas involving the left frontal lobe and a subarachnoid hemorrhage over the left frontal lobe and into the left interhemispheric fissure. - Acute pain - increase Fentanyl patch to 25mcq - Plan is for discharge home 06/04, pending decision on Home health Physical therapy and Occupational therapy
--- NOTE | 2018-06-03 12:54 | CASEMGMT ---
Team meeting held. Patient present as well as patient family. Collaborating with team and patient, discharge date set for 06/07/18. Patient plans to discharge to home with spouse. Physical, Occupational and Speech therapy are recommending for patient to have continued therapy within the home or outpatient at time of discharge. Patient is agreeable to continued therapy but does not have insurance and would like to know private pay rates for both services. 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 Support given. Proposed discharge date: 06/07/18. PLAN: Discharge to home with spouse with home health vs. outpatient pending funds. Desiree BRADLEY, [employer]ILINGS [employer]
[2018-06-03 21:15] VITALS: BP 129/75; PULSE 69; RESP 16; TEMP 37; O2SAT 95
[2018-06-03] MEDS: LORazepam 0.5 MG Tablet PO (21:18)
--- NOTE | 2018-06-03 21:30 | NURSING ---
artificial tears placed to right eye. pt denied the need for eye to be taped at this time prior to bedtime.
--- NOTE | 2018-06-04 02:13 | NURSING ---
duragesic patch maintained to left arm
--- NOTE | 2018-06-04 03:34 | NURSING ---
Reviewed and agree with [employer] documentation and FIMs charting.
[2018-06-04] MEDS: Enoxaparin 40 MG/0.4 ML Syringe SC (07:10)
[2018-06-04] MEDS: oxyCODONE 5 MG Tablet PO ×2 (08:35→21:20)
[2018-06-04] MEDS: Senna/Docusate Sodium 1 Tablet 2 TABLET PO (08:35)
[2018-06-04] MEDS: Acetaminophen 500 MG Tablet 1000 MG PO (08:36)
[2018-06-04] MEDS: predniSONE 20 MG Tablet PO (08:36)
--- NOTE | 2018-06-04 09:16 | NURSING ---
per Jamal PP remove sutures from old chest tube site on R. side. Two sutures removed pt tolerated well.
--- NOTE | 2018-06-04 09:39 | PCM.PN.NEU ---
Subjective: Patient seen and examined. No acute events overnight. Tolerating therapy, Speech will evaluate patient's swallowing for possible advancement in diet to Mechanical soft or regular texture foods, will need a Swallow evaluation as an outpatient for liquids. Patient is schedule for discharge on Thursday 06/07. No issues with /GI. - Physical Exam General: Alert, Oriented x3, Cooperative HEENT: Atraumatic, PERRLA, EOMI, Normocephalic Neck: Supple, No JVD, Negative Carotid Bruits Lungs: Clear to auscultation, Normal air movement Cardiovascular: Regular rate, No murmurs Abdomen: Bowel Sounds Present, Soft, Non Tender Extremities: No edema, Capillary Refill Less than 3 Seconds Skin: No rashes, No breakdown Musculoskeletal: No Tenderness to Palpation of Joints or Extremities Neurological: Cranial nerves II-XII grossly intact Psych/Mental Status: Normal Affect, Appropriate, Alert and oriented to time, place, person, mood and affect Vital Signs Temp Pulse Resp BP Pulse Ox 98.6 F 69 16 129/75 H 95 06/03/18 21:15 06/03/18 21:15 06/03/18 21:15 06/03/18 21:15 06/03/18 21:15 Oxygen Delivery Method Room Air Weight: 71.6 kg Body Mass Index (BMI) 54.9 Active Medications Acetaminophen (Tylenol) 1,000 mg PO Q8H PRN PRN PRN Reason: PAIN Last Admin: 06/04/18 08:36 Dose: 1,000 mg Artificial Tears (Tears Naturale, Artificial Tears) 1 drop RIGHT EYE Q1H PRN PRN PRN Reason: Dry Eye Last Admin: 06/04/18 08:37 Dose: 1 drop Bisacodyl (Dulcolax) 10 mg RECTAL .PRN X 1 PRN PRN Reason: Constipation Enoxaparin Sodium (Lovenox) 40 mg SC DAILY@0600 [facility] Last Admin: 06/04/18 07:10 Dose: 40 mg Fentanyl (Duragesic Patch) 25 mcg TRANSDERM. Q3D [facility] Last Admin: 06/02/18 07:41 Dose: 25 mcg Lorazepam (Ativan) 0.5 mg PO QHS PRN PRN PRN Reason: Insomnia Last Admin: 06/03/18 21:18 Dose: 0.5 mg Magnesium Hydroxide (Milk Of Magnesia) 30 ml PO .PRN X 1 PRN PRN Reason: Constipation Ondansetron HCl (Zofran Odt) 4 mg PO Q6H PRN PRN PRN Reason: NAUSEA Oxycodone HCl (Oxyir) 5 mg PO Q4H PRN PRN PRN Reason: SEVERE PAIN (6-10/10) Phenazopyridine HCl (Azo Standard) 190 mg PO TID PRN PRN PRN Reason: urinary infection Prednisone () 5 mg PO DAILY@0800 [facility] Stop: 06/14/18 08:01 Prednisone () 40 mg PO DAILYCM [facility] PRN Reason: Taper Stop: 06/12/18 07:59 Last Admin: 06/04/18 08:36 Dose: 40 mg Senna/Docusate Sodium (Senokot-S, Yoana-Colace) 2 tablet PO BID [facility] Last Admin: 06/04/18 08:35 Dose: 2 tablet Medical Necessity - Tobacco Use Smoking Status: Never smoker Assessment/Plan Debility s/p Fall from a ladder 20 feet, suffered a compression fracture involving L1 and fractures involving the right L1 and L2 transverse process, T11 compression fracture and avulsion fracture involving the endplates of T12. A left subdural hematoma with multiple rhonchi and mild contusion and hematomas involving the left frontal lobe and a subarachnoid hemorrhage over the left frontal lobe and into the left interhemispheric fissure. He also suffer a skull fracture involving the right skull base extending through the right petrous ridge in the right occipital bone with fluid in the right mastoid air cells and fracture extension through the course of the right internal carotid artery. 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 A left subdural hematoma with multiple rhonchi and mild contusion and hematomas involving the left frontal lobe and a subarachnoid hemorrhage over the left frontal lobe and into the left interhemispheric fissure. - Acute pain - increase Fentanyl patch to 25mcq - Plan is for discharge home 06/07, pending decision on Home health Physical therapy and Occupational therapy - Difficulty Swallowing 2/2 Ohara's palsy- prior to discharge home speech to do a texture evaluation and schedule an outpatient swallow evaluation
--- NOTE | 2018-06-04 09:45 | PN.NEURO_ITS ---
Subjective: Patient seen and examined. No acute events overnight. Tolerating therapy, Speech will evaluate patient's swallowing for possible advancement in diet to Mechanical soft or regular texture foods, will need a Swallow evaluation as an outpatient for liquids. Patient is schedule for discharge on Thursday 06/07. No issues with /GI. - Physical Exam General: Alert, Oriented x3, Cooperative HEENT: Atraumatic, PERRLA, EOMI, Normocephalic Neck: Supple, No JVD, Negative Carotid Bruits Lungs: Clear to auscultation, Normal air movement Cardiovascular: Regular rate, No murmurs Abdomen: Bowel Sounds Present, Soft, Non Tender Extremities: No edema, Capillary Refill Less than 3 Seconds Skin: No rashes, No breakdown Musculoskeletal: No Tenderness to Palpation of Joints or Extremities Neurological: Cranial nerves II-XII grossly intact Psych/Mental Status: Normal Affect, Appropriate, Alert and oriented to time, place, person, mood and affect Vital Signs Temp Pulse Resp BP Pulse Ox 98.6 F 69 16 129/75 H 95 06/03/18 21:15 06/03/18 21:15 06/03/18 21:15 06/03/18 21:15 06/03/18 21:15 Oxygen Delivery Method Room Air Weight: 71.6 kg Body Mass Index (BMI) 54.9 Active Medications Acetaminophen (Tylenol) 1,000 mg PO Q8H PRN PRN PRN Reason: PAIN Last Admin: 06/04/18 08:36 Dose: 1,000 mg Artificial Tears (Tears Naturale, Artificial Tears) 1 drop RIGHT EYE Q1H PRN PRN PRN Reason: Dry Eye Last Admin: 06/04/18 08:37 Dose: 1 drop Bisacodyl (Dulcolax) 10 mg RECTAL .PRN X 1 PRN PRN Reason: Constipation Enoxaparin Sodium (Lovenox) 40 mg SC DAILY@0600 [facility] Last Admin: 06/04/18 07:10 Dose: 40 mg Fentanyl (Duragesic Patch) 25 mcg TRANSDERM. Q3D [facility] Last Admin: 06/02/18 07:41 Dose: 25 mcg Lorazepam (Ativan) 0.5 mg PO QHS PRN PRN PRN Reason: Insomnia Last Admin: 06/03/18 21:18 Dose: 0.5 mg Magnesium Hydroxide (Milk Of Magnesia) 30 ml PO .PRN X 1 PRN PRN Reason: Constipation Ondansetron HCl (Zofran Odt) 4 mg PO Q6H PRN PRN PRN Reason: NAUSEA Oxycodone HCl (Oxyir) 5 mg PO Q4H PRN PRN PRN Reason: SEVERE PAIN (6-10/10) Phenazopyridine HCl (Azo Standard) 190 mg PO TID PRN PRN PRN Reason: urinary infection Prednisone () 5 mg PO DAILY@0800 [facility] Stop: 06/14/18 08:01 Prednisone () 40 mg PO DAILYCM [facility] PRN Reason: Taper Stop: 06/12/18 07:59 Last Admin: 06/04/18 08:36 Dose: 40 mg Senna/Docusate Sodium (Senokot-S, Yoana-Colace) 2 tablet PO BID [facility] Last Admin: 06/04/18 08:35 Dose: 2 tablet Medical Necessity - Tobacco Use Smoking Status: Never smoker Assessment/Plan Debility s/p Fall from a ladder 20 feet, suffered a compression fracture involving L1 and fractures involving the right L1 and L2 transverse process, T11 compression fracture and avulsion fracture involving the endplates of T12. A left subdural hematoma with multiple rhonchi and mild contusion and hematomas involving the left frontal lobe and a subarachnoid hemorrhage over the left frontal lobe and into the left interhemispheric fissure. He also suffer a skull fracture involving the right skull base extending through the right petrous ridge in the right occipital bone with fluid in the right mastoid air cells and fracture extension through the course of the right internal carotid artery. 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 A left subdural hematoma with multiple rhonchi and mild contusion and hematomas involving the left frontal lobe and a subarachnoid hemorrhage over the left frontal lobe and into the left interhemispheric fissure. - Acute pain - increase Fentanyl patch to 25mcq - Plan is for discharge home 06/07, pending decision on Home health Physical therapy and Occupational therapy - Difficulty Swallowing 2/2 Ohara's palsy- prior to discharge home speech to do a texture evaluation and schedule an outpatient swallow evaluation
[2018-06-04 10:00] VITALS: BP 140/78; PULSE 75; RESP 18; TEMP 36.8; O2SAT 95
--- NOTE | 2018-06-04 15:26 | CASEMGMT ---
Social Work Contacting various outpatient and home health companies in patient area and providing patient with list of companies that provide Speech, Occupational, and Physical therapy along with approximate cost. Patient and patient family to get back to this social service agency director on what company they would like to go with. Proposed discharge date: 06/07/18 PLAN: Discharge to home with family and continued therapy. Desiree BRADLEY, MANAGER DEMAND
[2018-06-04 20:19] VITALS: BP 121/69; PULSE 70; RESP 16; TEMP 36.8; O2SAT 95
[2018-06-04] MEDS: LORazepam 0.5 MG Tablet PO (21:20)
--- NOTE | 2018-06-05 01:55 | NURSING ---
Reviewed and agree with [employer] documentation and FIMs charting.
[2018-06-05] MEDS: Enoxaparin 40 MG/0.4 ML Syringe SC (05:24)
[2018-06-05 07:49] VITALS: BP 128/76; PULSE 78; RESP 16; TEMP 36.9; O2SAT 96
[2018-06-05] MEDS: Senna/Docusate Sodium 1 Tablet 2 TABLET PO ×2 (10:05→21:16)
[2018-06-05] MEDS: predniSONE 20 MG Tablet PO (10:05)
[2018-06-05] MEDS: Acetaminophen 500 MG Tablet 1000 MG PO (10:12)
--- NOTE | 2018-06-05 10:26 | PCM.PN.NEU ---
Subjective: Patient seen and examined. No new complaints. Had an evaluation with Speech therapy on 06/04 for possible advancement of diet, patient did very well was able to tolerate both regular food and thin liquids. - Physical Exam General: Alert, Oriented x3, Cooperative HEENT: Atraumatic, PERRLA, EOMI, Normocephalic Neck: Supple, No JVD, Negative Carotid Bruits Lungs: Clear to auscultation, Normal air movement Cardiovascular: Regular rate, No murmurs Abdomen: Bowel Sounds Present, Soft, Non Tender Extremities: No edema, Capillary Refill Less than 3 Seconds Skin: No rashes, No breakdown Musculoskeletal: No Tenderness to Palpation of Joints or Extremities Neurological: Cranial nerves II-XII grossly intact Psych/Mental Status: Normal Affect, Appropriate, Alert and oriented to time, place, person, mood and affect Vital Signs Temp Pulse Resp BP Pulse Ox 98.4 F 78 16 128/76 H 96 06/05/18 07:49 06/05/18 07:49 06/05/18 07:49 06/05/18 07:49 06/05/18 07:49 Oxygen Delivery Method Room Air Weight: 71.6 kg Body Mass Index (BMI) 54.9 Active Medications Acetaminophen (Tylenol) 1,000 mg PO Q8H PRN PRN PRN Reason: PAIN Last Admin: 06/05/18 10:12 Dose: 1,000 mg Artificial Tears (Tears Naturale, Artificial Tears) 1 drop RIGHT EYE Q1H PRN PRN PRN Reason: Dry Eye Last Admin: 06/05/18 10:06 Dose: 1 drop Bisacodyl (Dulcolax) 10 mg RECTAL .PRN X 1 PRN PRN Reason: Constipation Enoxaparin Sodium (Lovenox) 40 mg SC DAILY@0600 [facility] Last Admin: 06/05/18 05:24 Dose: 40 mg Fentanyl (Duragesic Patch) 25 mcg TRANSDERM. Q3D [facility] Last Admin: 06/02/18 07:41 Dose: 25 mcg Lorazepam (Ativan) 0.5 mg PO QHS PRN PRN PRN Reason: Insomnia Last Admin: 06/04/18 21:20 Dose: 0.5 mg Magnesium Hydroxide (Milk Of Magnesia) 30 ml PO .PRN X 1 PRN PRN Reason: Constipation Ondansetron HCl (Zofran Odt) 4 mg PO Q6H PRN PRN PRN Reason: NAUSEA Oxycodone HCl (Oxyir) 5 mg PO Q4H PRN PRN PRN Reason: SEVERE PAIN (6-10/10) Last Admin: 06/04/18 21:20 Dose: 5 mg Phenazopyridine HCl (Azo Standard) 190 mg PO TID PRN PRN PRN Reason: urinary infection Prednisone () 5 mg PO DAILY@0800 [facility] Stop: 06/14/18 08:01 Prednisone () 40 mg PO DAILYCM [facility] PRN Reason: Taper Stop: 06/12/18 07:59 Last Admin: 06/05/18 10:05 Dose: 40 mg Senna/Docusate Sodium (Senokot-S, Yoana-Colace) 2 tablet PO BID [facility] Last Admin: 06/05/18 10:05 Dose: 2 tablet Medical Necessity - Tobacco Use Smoking Status: Never smoker Assessment/Plan Debility s/p Fall from a ladder 20 feet, suffered a compression fracture involving L1 and fractures involving the right L1 and L2 transverse process, T11 compression fracture and avulsion fracture involving the endplates of T12. A left subdural hematoma with multiple rhonchi and mild contusion and hematomas involving the left frontal lobe and a subarachnoid hemorrhage over the left frontal lobe and into the left interhemispheric fissure. He also suffer a skull fracture involving the right skull base extending through the right petrous ridge in the right occipital bone with fluid in the right mastoid air cells and fracture extension through the course of the right internal carotid artery. 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 A left subdural hematoma with multiple rhonchi and mild contusion and hematomas involving the left frontal lobe and a subarachnoid hemorrhage over the left frontal lobe and into the left interhemispheric fissure. - Acute pain - increase Fentanyl patch to 25mcq - Plan is for discharge home 06/07, pending decision on Home health Physical therapy and Occupational therapy - Difficulty Swallowing 2/2 Ohara's palsy- prior to discharge home speech to do a texture evaluation and schedule an outpatient swallow evaluation => patient had a texture evaluation 06/04, did very well, was able to tolerate regular texture foods and thin liquids will change diet to regular diet with thin liquids and monitor for possible Aspiration.
--- NOTE | 2018-06-05 10:30 | PN.NEURO_ITS ---
Subjective: Patient seen and examined. No new complaints. Had an evaluation with Speech therapy on 06/04 for possible advancement of diet, patient did very well was able to tolerate both regular food and thin liquids. - Physical Exam General: Alert, Oriented x3, Cooperative HEENT: Atraumatic, PERRLA, EOMI, Normocephalic Neck: Supple, No JVD, Negative Carotid Bruits Lungs: Clear to auscultation, Normal air movement Cardiovascular: Regular rate, No murmurs Abdomen: Bowel Sounds Present, Soft, Non Tender Extremities: No edema, Capillary Refill Less than 3 Seconds Skin: No rashes, No breakdown Musculoskeletal: No Tenderness to Palpation of Joints or Extremities Neurological: Cranial nerves II-XII grossly intact Psych/Mental Status: Normal Affect, Appropriate, Alert and oriented to time, place, person, mood and affect Vital Signs Temp Pulse Resp BP Pulse Ox 98.4 F 78 16 128/76 H 96 06/05/18 07:49 06/05/18 07:49 06/05/18 07:49 06/05/18 07:49 06/05/18 07:49 Oxygen Delivery Method Room Air Weight: 71.6 kg Body Mass Index (BMI) 54.9 Active Medications Acetaminophen (Tylenol) 1,000 mg PO Q8H PRN PRN PRN Reason: PAIN Last Admin: 06/05/18 10:12 Dose: 1,000 mg Artificial Tears (Tears Naturale, Artificial Tears) 1 drop RIGHT EYE Q1H PRN PRN PRN Reason: Dry Eye Last Admin: 06/05/18 10:06 Dose: 1 drop Bisacodyl (Dulcolax) 10 mg RECTAL .PRN X 1 PRN PRN Reason: Constipation Enoxaparin Sodium (Lovenox) 40 mg SC DAILY@0600 [facility] Last Admin: 06/05/18 05:24 Dose: 40 mg Fentanyl (Duragesic Patch) 25 mcg TRANSDERM. Q3D [facility] Last Admin: 06/02/18 07:41 Dose: 25 mcg Lorazepam (Ativan) 0.5 mg PO QHS PRN PRN PRN Reason: Insomnia Last Admin: 06/04/18 21:20 Dose: 0.5 mg Magnesium Hydroxide (Milk Of Magnesia) 30 ml PO .PRN X 1 PRN PRN Reason: Constipation Ondansetron HCl (Zofran Odt) 4 mg PO Q6H PRN PRN PRN Reason: NAUSEA Oxycodone HCl (Oxyir) 5 mg PO Q4H PRN PRN PRN Reason: SEVERE PAIN (6-10/10) Last Admin: 06/04/18 21:20 Dose: 5 mg Phenazopyridine HCl (Azo Standard) 190 mg PO TID PRN PRN PRN Reason: urinary infection Prednisone () 5 mg PO DAILY@0800 [facility] Stop: 06/14/18 08:01 Prednisone () 40 mg PO DAILYCM [facility] PRN Reason: Taper Stop: 06/12/18 07:59 Last Admin: 06/05/18 10:05 Dose: 40 mg Senna/Docusate Sodium (Senokot-S, Yoana-Colace) 2 tablet PO BID [facility] Last Admin: 06/05/18 10:05 Dose: 2 tablet Medical Necessity - Tobacco Use Smoking Status: Never smoker Assessment/Plan Debility s/p Fall from a ladder 20 feet, suffered a compression fracture involving L1 and fractures involving the right L1 and L2 transverse process, T11 compression fracture and avulsion fracture involving the endplates of T12. A left subdural hematoma with multiple rhonchi and mild contusion and hematomas involving the left frontal lobe and a subarachnoid hemorrhage over the left frontal lobe and into the left interhemispheric fissure. He also suffer a skull fracture involving the right skull base extending through the right petrous ridge in the right occipital bone with fluid in the right mastoid air cells and fracture extension through the course of the right internal carotid artery. 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 A left subdural hematoma with multiple rhonchi and mild contusion and hematomas involving the left frontal lobe and a subarachnoid hemorrhage over the left frontal lobe and into the left interhemispheric fissure. - Acute pain - increase Fentanyl patch to 25mcq - Plan is for discharge home 06/07, pending decision on Home health Physical therapy and Occupational therapy - Difficulty Swallowing 2/2 Ohara's palsy- prior to discharge home speech to do a texture evaluation and schedule an outpatient swallow evaluation => patient had a texture evaluation 06/04, did very well, was able to tolerate regular texture foods and thin liquids will change diet to regular diet with thin liquids and monitor for possible Aspiration.
[2018-06-05] MEDS: fentaNYL 25 MCG Patch TRANSDERM. (15:07)
--- NOTE | 2018-06-05 17:12 | PCM.PN.HOSP ---
Subjective: Patient was seen and examined. No new complains. No acute events per nursing. Being discharged on Saturday. Objective: Physical Exam General: Alert, Oriented x3, Cooperative, not pale or jaundiced HEENT: Atraumatic, PERRLA, EOMI, Normocephalic Neck: Supple, No JVD, Negative Carotid Bruits Lungs: Clear to auscultation, Normal air movement Cardiovascular: Regular rate, No murmurs Abdomen: Bowel Sounds Present, Soft, Non Tender Extremities: No edema, Capillary Refill Less than 3 Seconds Skin: No rashes, No breakdown Musculoskeletal: No Tenderness to Palpation of Joints or Extremities Neurological: Cranial nerves II-XII grossly intact Psych/Mental Status: Normal Affect, Appropriate, Alert and oriented to time, place, person, mood and affect Vitals/I&O's: Vital Signs Temp Pulse Resp BP Pulse Ox 98.4 F 78 16 128/76 H 96 06/05/18 07:49 06/05/18 07:49 06/05/18 07:49 06/05/18 07:49 06/05/18 07:49 Oxygen Delivery Method Room Air Weight: 71.6 kg Body Mass Index (BMI) 54.9 Intake and Output for Last 24 Hours 06/03/18 06/04/18 06/05/18 23:59 23:59 23:59 Intake Total 220 / 220 Balance 220 / 220 Current Medications Acetaminophen (Tylenol) 1,000 mg PO Q8H PRN PRN PRN Reason: PAIN Last Admin: 06/05/18 10:12 Dose: 1,000 mg Artificial Tears (Tears Naturale, Artificial Tears) 1 drop RIGHT EYE Q1H PRN PRN PRN Reason: Dry Eye Last Admin: 06/05/18 10:06 Dose: 1 drop Bisacodyl (Dulcolax) 10 mg RECTAL .PRN X 1 PRN PRN Reason: Constipation Enoxaparin Sodium (Lovenox) 40 mg SC DAILY@0600 [facility] Last Admin: 06/05/18 05:24 Dose: 40 mg Fentanyl (Duragesic Patch) 25 mcg TRANSDERM. Q3D [facility] Last Admin: 06/05/18 15:07 Dose: 25 mcg Lorazepam (Ativan) 0.5 mg PO QHS PRN PRN PRN Reason: Insomnia Last Admin: 06/04/18 21:20 Dose: 0.5 mg Magnesium Hydroxide (Milk Of Magnesia) 30 ml PO .PRN X 1 PRN PRN Reason: Constipation Ondansetron HCl (Zofran Odt) 4 mg PO Q6H PRN PRN PRN Reason: NAUSEA Oxycodone HCl (Oxyir) 5 mg PO Q4H PRN PRN PRN Reason: SEVERE PAIN (6-10/10) Last Admin: 06/04/18 21:20 Dose: 5 mg Phenazopyridine HCl (Azo Standard) 190 mg PO TID PRN PRN PRN Reason: urinary infection Prednisone () 5 mg PO DAILY@0800 [facility] Stop: 06/14/18 08:01 Prednisone () 40 mg PO DAILYCM [facility] PRN Reason: Taper Stop: 06/12/18 07:59 Last Admin: 06/05/18 10:05 Dose: 40 mg Senna/Docusate Sodium (Senokot-S, Yoana-Colace) 2 tablet PO BID [facility] Last Admin: 06/05/18 10:05 Dose: 2 tablet Medical Necessity - Tobacco Use Smoking Status: Never smoker Assessment/Plan 27 year old male who fell from a ladder at work and subsequently had multiple injuries. He is here in the rehab for therapy. 1. Debility related to trauma with multiple injuries including compression fracture involving T11, L1 , fractures of right L1 and L2 transverse process, and avulsion fracture involving the endplates of T12. He also did develop left subdural hematoma with mild contusion and hematomas involving the left frontal lobe and subarachnoid hemorrhage over the left frontal lobe and into the left interhemispheric fissure. Also has a skull fracture involving the right skull base extending through the right petrous ridge in the right occipital bone with fluid in the right mastoid air cells and fracture extension through the course of the right internal carotid artery 2. Ohara's palsy involving the right side, remains on prednisone, off acyclovir 3. Bladder spasms, on Pyridium as needed 4. DVT prophylaxis - on enoxaparin Code Visit Inpatient E&M: 53471 Subs Hosp L2
[2018-06-05] MEDS: LORazepam 0.5 MG Tablet PO (21:17)
[2018-06-05 21:25] VITALS: BP 136/71; PULSE 71; RESP 16; TEMP 37.2; O2SAT 95
[2018-06-06] MEDS: Acetaminophen 500 MG Tablet 1000 MG PO ×2 (07:06→15:24)
[2018-06-06] MEDS: Enoxaparin 40 MG/0.4 ML Syringe SC (07:07)
[2018-06-06] MEDS: predniSONE 20 MG Tablet PO (08:00)
[2018-06-06 08:05] VITALS: BP 129/76; PULSE 72; RESP 17; O2SAT 96
[2018-06-06] MEDS: oxyCODONE 5 MG Tablet PO ×2 (08:40→21:13)
--- NOTE | 2018-06-06 13:08 | CASEMGMT ---
Social Work Spoke with patient and patient spouse in room. Patient requesting for home health services to be set up through [facility] - [phone] in [place] for physical and occupational therapy. Patient is declining to continue with speech therapy at this time. Patient reporting to have needed durable medical equipment already set up within the home and to have no further needs at this time. Patient family to set up transportation home for patient tomorrow. Support given. Telephone call to [facility], voicemail left. Will fax order when it is confirmed that [facility] will be able to accept patient. Proposed discharge date: 06/07/18 PLAN: Discharge to home with spouse and home health services. Desiree BRADLEY, INSURANCE COUNSEL
--- NOTE | 2018-06-06 16:50 | PCM.DC ---
- Discharge Diagnoses Reason(s) for Visit for Discharge Instructions: SDH and SAH You will use the following diet at home:: Regular Your food should be the consistency of: Regular Your liquids should be the consistency of: Regular/Thin Discharge Activity: May Not Drive, May not drive while taking narcotic pain medications., May Shower, Use Walker Weight Bearing Status: Weight bearing as tolerated Call your doctor if you observe: Fever of 101 or Higher, Coldness, Increased Pain, Numbness or Tingling, Change in Color, Inability to urinate, Inability to have a bowel movement, Using more than one pad per hour, Shortness of breath, Dizziness, Fainting spells, Swelling in the ankles, Chest pain, Prolonged hiccoughing, Increased palpitations (irregular heartbeat), Calf discomfort, Uncontrolled pain Allergies/Adverse Reactions: Allergies No Known Allergies Allergy (Verified 05/27/18 21:25) Medications to take at Discharge Lorazepam [Ativan] 0.5 mg PO QHS PRN PRN #15 tab 06/06/18 Oxycodone [Oxyir] 5 mg PO Q4H PRN PRN 5 Days #21 tab 06/06/18 fentaNYL patch [Duragesic patch] 25 mcg TRANSDERM. Q3D 7 Days #3 patch 06/06/18 The following prescriptions were given: Oxycodone [Oxyir] 5 mg PO Q4H PRN PRN 5 Days #21 tab PRN Reason: Severe Pain (6-10/10) fentaNYL patch [Duragesic patch] 25 mcg TRANSDERM. Q3D 7 Days #3 patch Lorazepam [Ativan] 0.5 mg PO QHS PRN PRN #15 tab PRN Reason: Insomnia Test Results: Test results from this visit will be discussed in further detail at your follow-up appointment, if applicable. Please Follow Up With: [facility] - Home Health - Physical and Occupational [place] Proposed Discharge Date: 06/07/18
--- NOTE | 2018-06-06 16:54 | DS.PCM_ITS ---
Rehab Discharge Summary DATE OF ADMISSION: 05/27/18 DATE OF DISCHARGE: 06/07/18 - Rehab Diagnosis SDH and SAH Discharge Diet: No Restrictions Discharge Activity: May Not Drive, May not drive while taking narcotic pain medications., May Shower, Use Walker Weight Bearing Status: Weight bearing as tolerated Call your doctor if you observe: Fever of 101 or Higher, Coldness, Increased Pain, Numbness or Tingling, Change in Color, Inability to urinate, Inability to have a bowel movement, Using more than one pad per hour, Shortness of breath, Dizziness, Fainting spells, Swelling in the ankles, Chest pain, Prolonged hiccoughing, Increased palpitations (irregular heartbeat), Calf discomfort, Uncontrolled pain Home Medications: Medications to take at Discharge Lorazepam [Ativan] 0.5 mg PO QHS PRN PRN #15 tab 06/06/18 Oxycodone [Oxyir] 5 mg PO Q4H PRN PRN 5 Days #21 tab 06/06/18 fentaNYL patch [Duragesic patch] 25 mcg TRANSDERM. Q3D 7 Days #3 patch 06/06/18 Following Prescrptions Were Given to Patient: Oxycodone [Oxyir] 5 mg PO Q4H PRN PRN 5 Days #21 tab PRN Reason: Severe Pain (6-10/10) fentaNYL patch [Duragesic patch] 25 mcg TRANSDERM. Q3D 7 Days #3 patch Lorazepam [Ativan] 0.5 mg PO QHS PRN PRN #15 tab PRN Reason: Insomnia Please Follow Up With: [facility] - Home Health - Physical and Occupational Thearpy Disposition: Home with Home Health Minutes spent on discharge:: 40 Patient Condition:: Good Rehab Course The Patient is a 27 year old right handed male who was admitted to the rehab unit for rehabilitation after falling from a ladder 20 feet while at work. He suffered multiple injuries, compression fracture of L1 and transverse process fractures of the right L1 and L2, a T11 compression fracture and avulsion fracture involving the endplates of T12. A left subdural hematoma with multiple rhonchi and mild contusion and hematomas involving the left frontal lobe and a subarachnoid hemorrhage over the left frontal lobe and into the left interhemispheric fissure. He also had a skull fracture involving the right skull base extending through the right petrous ridge in the right occipital bone with fluid in the right mastoid air cells and a fracture extension through the course of the right internal carotid artery. He has no pass medical history. During his hospital stay at [facility], He had a right bur hole placement of an IPC pressure recording device to monitor his ICP on 05/15, a chest tube was placed on 05/17 for pneumothorax and was removed on 05/24. He has a TLSO brace for ambulation, and is Weight bearing as tolerated. 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 He has a cervical collar in place and it should be worn at all times until cleared by the Neurosurgeon, he has follow up appointment on June 12, with DR. Murdock. He lives with his and two small children in a 2 story home with 12 steps to get into the home. He was previously completely functionally independent and is admitted to the rehab unit in order to restore him to his previous level of functional independence. With Physical therapy, he is a able to turn and slide to the edge of the bed at supervision level, he is able to for from a sitting position to a standing position with a walker at stand by assist. He is able to walk 350 feet with a walker at standby assist, he has gone up and down a flight of steps at stand by assist. With Occupational therapy , he is minimal assist for lower body bathing, and getting his pants on, he is able to pull them up himself once they are at his knee. He is minimal assist for getting his TLSO brace on. He is supervision for bathing and dressing his upper body. With Nursing, his pain is well control on his current medications. The plan is for discharge home with his on 06/04, the staff feels he will do fine and he has a strong support network available to him. H will be discharged home with home health Physical therapy, and Occupational therapy. Meaningful Use Info Meaningful Use Diagnoses (Choose all that apply): None applicable
[2018-06-06 19:11] VITALS: BP 130/73; PULSE 67; RESP 14; TEMP 36.7; O2SAT 95
[2018-06-06] MEDS: LORazepam 0.5 MG Tablet PO (21:14)
[2018-06-07] MEDS: oxyCODONE 5 MG Tablet PO ×2 (04:40→09:04)
[2018-06-07] MEDS: Acetaminophen 500 MG Tablet 1000 MG PO (05:57)
[2018-06-07] MEDS: Enoxaparin 40 MG/0.4 ML Syringe SC (05:57)
[2018-06-07 07:26] VITALS: BP 124/75; PULSE 74; RESP 16; TEMP 36.7; O2SAT 96
[2018-06-07] MEDS: predniSONE 20 MG Tablet PO (09:02)
[2018-06-07 11:00] VITALS: BP 124/75; PULSE 74; RESP 16; TEMP 36.7; O2SAT 96
--- NOTE | 2018-06-07 11:00 | NURSING ---
Discharge instructions given to patient and family and verbalized understanding.
== END 2018-06-07 11:00 | disposition home health service (06) | DRG 561 ==
PROVIDERS: Admitting Provider Psychiatry & Neurology Neurology; Visit Provider Internal Medicine
DX: S02.11GD Other fracture of occiput, right side, subsequent encounter for fracture with routine healing (principal); S32.019D Unspecified fracture of first lumbar vertebra, subsequent encounter for fracture with routine healing; S32.029D Unspecified fracture of second lumbar vertebra, subsequent encounter for fracture with routine healing; S22.089D Unspecified fracture of T11-T12 vertebra, subsequent encounter for fracture with routine healing; W11.XXXD Fall on and from ladder, subsequent encounter; S06.6X9D Traumatic subarachnoid hemorrhage with loss of consciousness of unspecified duration, subsequent encounter; N32.89 Other specified disorders of bladder; G51.0 Bell's palsy
CPT/HCPCS: 36415; 80048; 85027; 92507; 92526; 97110; 97116; 97162; 97166; 97530; 97535

== ENCOUNTER → 2018-07-11 10:09 | Outpatient (CLI) | payer SELFPAY ==
--- NOTE | 2018-07-11 10:32 | CT_ITS ---
STUDY: CT TEMPORAL BONES WITHOUT CONTRAST - ATTN: I.A.C. Etelvina REASON FOR EXAM: Male, 27 years old. Trauma. Hearing loss. Fall 30 feet in April. RADIATION DOSAGE (If Supplied By Facility): CTDIvol = ( 67.58 ) mGy, DLP = ( 637.37 ) mGycm TECHNIQUE: The patient was scanned in a multi detector CT scanner. Transaxial imaging was performed without the administration of intravenous contrast material. Sagittal and coronal images were reconstructed. Individualized dose optimization techniques were used for this CT. COMPARISON: None. FINDINGS: RIGHT TEMPORAL BONE Fracture of the right temporal bone extending through the right internal auditory canal. Fracture extends through the facial nerve canal, series 300 image 33/58. There is fracture of the right occipital bone without displacement. Normal visualized ossicles and tympanic cavity. Normal right cochlea and semicircular canals. Normal vestibular aqueduct. Normal right petrous carotid artery. Normal right jugular fossa. There are moderate inflammatory changes of the right mastoid air cells. Normal right petrous apex. LEFT TEMPORAL BONE Normal left internal auditory canal. Normal visualized ossicles and tympanic cavity. Normal left cochlea and semicircular canals. Normal vestibular aqueduct. Normal left petrous carotid artery. Normal right jugular fossa. Normal left mastoid air cells. Normal left petrous apex. CT/Orb Sella Post Fossa Ear w/o IMPRESSION: Right occipital and temporal bone fractures. Fractures extend to the internal auditory canal and facial nerve canal Electronically Signed: Olvin Sim MD at 11:33 EDT , Service support ,
== END ==
PROVIDERS: Family Provider Family Medicine; PCP Family Medicine; Referring Provider Otolaryngology; Visit Provider Otolaryngology
DX: H91.91 Unspecified hearing loss, right ear (principal); H51.0 Palsy (spasm) of conjugate gaze
CPT/HCPCS: 70480

== ENCOUNTER 2018-07-22 08:05 | Day surgery (SDC) | payer SELFPAY, OTHER ==
[2018-07-22] VITALS (7 sets, daily range): BP systolic 114–135; BP diastolic 63–82; PULSE 56–76; RESP 16–18; TEMP 36.2–37.1; O2SAT 96–100; BMI 25.8
--- NOTE | 2018-07-22 09:26 | PCM.DC ---
You will use the following diet at home:: No restrictions Discharge Activity: Return to Normal Activity Call your doctor if your incision/area has: Increased Pain/ Swelling Additional Dressing/Incision Instructions:: erythromycin ointment to incisions three times daily for 1 week. tetracaine eyedrops (3 drops right eye) three times daily for 1 week. Allergies/Adverse Reactions: Allergies No Known Allergies Allergy (Verified 07/18/18 15:53) Medications to take at Discharge Acetaminophen [Tylenol Extra Strength] 500 - 1,000 mg PO Q6H PRN PRN 07/18/18 Multivitamin [Multiple Vitamins] 1 each PO DAILY 07/18/18 Primary Care Physician: Cisco Telles MD [Primary Care Provider] - Test Results: Test results from this visit will be discussed in further detail at your follow-up appointment, if applicable. Please Follow Up With: Kurt Red MD When: 1 month
--- NOTE | 2018-07-22 09:29 | DCINST_ITS ---
You will use the following diet at home:: No restrictions Discharge Activity: Return to Normal Activity Call your doctor if your incision/area has: Increased Pain/ Swelling Additional Dressing/Incision Instructions:: erythromycin ointment to incisions three times daily for 1 week. tetracaine eyedrops (3 drops right eye) three times daily for 1 week. Allergies/Adverse Reactions: Allergies No Known Allergies Allergy (Verified 07/18/18 15:53) Medications to take at Discharge Acetaminophen [Tylenol Extra Strength] 500 - 1,000 mg PO Q6H PRN PRN 07/18/18 Multivitamin [Multiple Vitamins] 1 each PO DAILY 07/18/18 Primary Care Physician: Cisco Telles MD [Primary Care Provider] - Test Results: Test results from this visit will be discussed in further detail at your follow- up appointment, if applicable. Please Follow Up With: Kurt Red MD When: 1 month
--- NOTE | 2018-07-22 09:29 | PCM.OPRPT ---
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 lagophthalmos, right. 2. ectropion, right Post-Operative Diagnosis: 1. lagophthalmos, right. 2. ectropion, right Surgery/Procedure Performed:: 1. gambell weight, right upper eyelid. 2. lower lid tightening, right lower lid Type of Anesthesia:: Local MAC Description of Procedure: on the day of the procedure, after appropriate informed consent was obtained, the patient was brought to the operating room and placed in supine position on the operating table. he was placed under local/MAC anesthesia by the anesthesiologist. the mid-pupillary line and tarsal crease were marked.the right lateral canthus and upper lid/tarsal crease were injected with lidocaine/epinephrine. the face was prepped and draped in sterile fashion. a corneal shield was placed. a 1cm incision was made in the right supratarsal crease with a #15 blade. tee scizzors were used to dissect to the tarsal plate and a pocket was created. the 1.2gm gambell weight was inserted into the pocket and sutured at two points with 7-0 vicryl. the muscle and skin were sutured with 7-0 vicryl. a #15 blade was used to make a 1cm incision in the right lateral canthus. tee scizzors were used to perform a canthotomy/cantholysis; the orbicularis muscle was divided. the lateral orbital rim was exposed with dissection and two q tips. the tarsus was skeletonized laterally with scizzors and trimmed accordingly. this was securely sutured to the lateral orbital rim with 6-0 PDS. the bryan line was reapproximated using 7-0 vicryl. excess canthal skin was excised and the incision was closed with 7-0 vicryl. the corneal shield was removed. ointment and drops were placed. the patient was transferred to the PACU in stable condition.
--- NOTE | 2018-07-22 09:39 | OP.PCM_ITS ---
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 lagophthalmos, right. 2. ectropion, right Post-Operative Diagnosis: 1. lagophthalmos, right. 2. ectropion, right Surgery/Procedure Performed:: 1. tetlin weight, right upper eyelid. 2. lower lid tightening, right lower lid Type of Anesthesia:: Local MAC Description of Procedure: on the day of the procedure, after appropriate informed consent was obtained, the patient was brought to the operating room and placed in supine position on the operating table. he was placed under local/MAC anesthesia by the anesthesiologist. the mid-pupillary line and tarsal crease were marked.the right lateral canthus and upper lid/tarsal crease were injected with lidocaine/epinephrine. the face was prepped and draped in sterile fashion. a corneal shield was placed. a 1cm incision was made in the right supratarsal crease with a #15 blade. tee scizzors were used to dissect to the tarsal plate and a pocket was created. the 1.2gm tetlin weight was inserted into the pocket and sutured at two points with 7-0 vicryl. the muscle and skin were sutured with 7-0 vicryl. a #15 blade was used to make a 1cm incision in the right lateral canthus. tee scizzors were used to perform a canthotomy/cantholysis; the orbicularis muscle was divided. the lateral orbital rim was exposed with dissection and two q tips. the tarsus was skeletonized laterally with scizzors and trimmed accordingly. this was securely sutured to the lateral orbital rim with 6-0 PDS. the bryan line was reapproximated using 7-0 vicryl. excess canthal skin was ex cised and the incision was closed with 7-0 vicryl. the corneal shield was removed. ointment and drops were placed. the patient was transferred to the PACU in stable condition.
[2018-07-22] MEDS: Sodium/Calcium/Mag/Potassium 15 ML Bottle (10:00)
[2018-07-22] MEDS: Tetracaine 0.5% Ophthalmic Bottle 1 DRP (10:20)
[2018-07-22] MEDS: Erythromycin Base 1 OPTH.TUBE 1 APPLIC (10:27)
== END 2018-07-22 12:59 | disposition home or self-care (01) ==
LOC: SDC 08:06 → AC 08:08
PROVIDERS: Family Provider Family Medicine; PCP Family Medicine; Referring Provider Otolaryngology; Visit Provider Otolaryngology
PROC: (CPT 67912; principal; 2018-07-22 09:25)
DX: H02.2 Lagophthalmos (principal); H02.122 Mechanical ectropion of right lower eyelid; H90.41 Sensorineural hearing loss, unilateral, right ear, with unrestricted hearing on the contralateral side; G51.8 Other disorders of facial nerve
CPT/HCPCS: 00103; 67715; 67912; J7120; J2405